=== PATIENT | male | born 1950 | race Caucasian/White ===

== ENCOUNTER → 2016-07-18 | Outpatient (REF) | payer MEDICARE, OTHER | LOC: M LAB REF 12:20 | DX: L57.0 Actinic keratosis (principal) ==

== ENCOUNTER → 2016-08-07 | Outpatient (REF) | payer OTHER | LOC: M LAB REF 10:30 | DX: L98.9 Disorder of the skin and subcutaneous tissue, unspecified (principal) ==

== ENCOUNTER → 2017-07-03 | Outpatient (REF) | payer MEDICARE | LOC: M LAB REF 13:38 | DX: L57.0 Actinic keratosis (principal); L98.8 Other specified disorders of the skin and subcutaneous tissue; R23.4 Changes in skin texture | CPT/HCPCS: 88305 ==

== ENCOUNTER → 2018-11-03 | Outpatient (REF) | payer MEDICARE | LOC: M LABCFH 14:41 | DX: D04.39 Carcinoma in situ of skin of other parts of face (principal) ==